=== PATIENT | male | born 1975 | race Hispanic/Latino ===

== ENCOUNTER 2017-10-17 09:42 | Emergency (ER) | payer BC ==
--- NOTE | 2017-10-17 10:10 | ED.PDOC ---
History of Present Illness - General Chief Complaint: Respiratory Problem Stated Complaint: cough, feeling hot Time Seen by Provider: 10/17/17 10:08 Source: patient Exam Limitations: no limitations - History of Present Illness Timing/Duration: other - Three days Cough Quality/Degree: moderate, dry cough Possible Cause: illness exposure Improving Factors: rest Worsening Factors: movement Associated Symptoms: chest pain/soreness, cough, fever/chills Allergies/Adverse Reactions: Allergies NO KNOWN ALLERGY Allergy (Verified 10/17/17 10:01) Home Medications: Ambulatory Orders Benzonatate Perles [Tessalon Perles] 100 mg PO TID PRN #20 cap 10/17/17 Review of Systems - Review of Systems Constitutional: States: fever, malaise EENTM: States: nose congestion Respiratory: States: cough. Denies: short of breath Cardiology: States: chest pain. Denies: edema Gastrointestinal/Abdominal: Denies: abdominal pain, nausea Genitourinary: States: no symptoms reported Musculoskeletal: States: muscle pain Skin: Denies: rash Neurological: States: weakness. Denies: headache, paresthesia Past Medical History (General) - Patient Medical History Hx Seizures: No Hx Stroke: No Hx Asthma: No Hx Cardiac Disorders: No Hx Hypertension: Yes Hx Diabetes: No Hx Renal Disease: No Surgical History: no surgical history Family Medical History - Family History Mother Family History: Unknown Physical Exam - Physical Exam General Appearance: Alert, Comfortable Eye Exam: bilateral normal ENT Exam: normal ENT inspection Neck: non-tender, full range of motion Respiratory: normal breath sounds, no respiratory distress Cardiovascular/Chest: normal peripheral pulses, regular rate, rhythm, no edema Gastrointestinal/Abdominal: normal bowel sounds, non tender Extremity: normal range of motion, normal inspection Neurologic: alert, normal mood/affect, oriented x 3 Skin Exam: normal color Lymphatic: no adenopathy Departure - Departure Clinical Impression: Influenza Disposition: Discharge to Home or Self Care Condition: Good Departure Forms: ED Discharge - Pt. Copy, Patient Portal Self Enrollment Prescriptions: Benzonatate Perles [Tessalon Perles] 100 mg PO TID PRN #20 cap PRN Reason: Cough Home Medications: Ambulatory Orders Benzonatate Perles [Tessalon Perles] 100 mg PO TID PRN #20 cap 10/17/17
[2017-10-17 10:13] VITALS: TEMP 98.6
[2017-10-17 10:23] VITALS: BP 163/107; O2SAT 96
== END 2017-10-17 10:23 | disposition home or self-care (01) ==
LOC: ER 09:42
DX: J11.1 Influenza due to unidentified influenza virus with other respiratory manifestations (principal)

== ENCOUNTER → 2018-08-01 | Outpatient (CLI) | payer BC | LOC: LAB.O 08:08 | PROVIDERS: ATTEND Nurse Practitioner Family | DX: Z13.220 Encounter for screening for lipoid disorders (principal); I10 Essential (primary) hypertension ==

== ENCOUNTER → 2019-12-22 | Outpatient (CLI) | payer OTHER | LOC: YCFC.O 07:27 | PROVIDERS: ATTEND Family Medicine | DX: E11.65 Type 2 diabetes mellitus with hyperglycemia (principal); E78.5 Hyperlipidemia, unspecified ==

== ENCOUNTER 2020-02-24 22:22 | Emergency (ER) | payer BC, OTHER ==
[2020-02-24 22:31] VITALS: TEMP 98.5
[2020-02-24] MEDS ORDERED: ASPIRIN TABLET 325 MG TAB PO ONE (22:31)
[2020-02-24] MEDS ORDERED: SUCRALFATE 1 GM/10 ML 1 GM UD PO ONE (22:32)
--- NOTE | 2020-02-24 23:09 | ED.PDOC ---
History of Present Illness - General Chief Complaint: Chest Pain/DE Stated Complaint: chest pain Time Seen by Provider: 02/24/20 22:25 Source: patient Exam Limitations: language barrier - History of Present Illness Initial Comments: The patient is a 44-year-old male presented emergency room secondary to intermittent chest pain starting around 3 AM this morning going to about 3 PM this evening. The patient had ran out of his blood pressure medications a few days prior. He has had no chest pain since 3 PM. He has however been drinking fairly steadily. He is obviously inebriated currently. No chest pain currently. No nausea vomiting or diarrhea currently. He did have some diarrhea earlier in the day. No fever. No shortness of breath. No rash. No altered mental status. He did have a mild headache earlier. No nuchal rigidity or meningeal signs. Chest pain was intermittent and stabbing in nature. Just to the left of the parasternal border. For a while that was worse with taking a deep breath. Timing/Duration: unsure Severity: moderate Improving Factors: immobilization Worsening Factors: movement Associated Symptoms: chest pain Allergies/Adverse Reactions: Allergies NO KNOWN ALLERGY Allergy (Verified 02/24/20 22:37) Home Medications: Ambulatory Orders Benzonatate Perles [Tessalon Perles] 100 mg PO TID PRN #20 cap 10/17/17 Famotidine [Pepcid Tab] 20 mg PO BID #60 tab 02/24/20 Sucralfate Tab [Carafate Tab] 1 gm PO QID #120 tab 02/24/20 Review of Systems - Review of Systems Constitutional: States: no symptoms reported EENTM: States: no symptoms reported Respiratory: States: no symptoms reported Cardiology: States: chest pain Gastrointestinal/Abdominal: States: no symptoms reported, diarrhea Genitourinary: States: no symptoms reported Musculoskeletal: States: no symptoms reported Skin: States: no symptoms reported Neurological: States: no symptoms reported Endocrine: States: no symptoms reported All other Systems: No Change from Baseline Past Medical History (General) - Patient Medical History Hx Seizures: No Hx Stroke: No Hx Dementia: No Hx Asthma: No Hx of COPD: No Hx Cardiac Disorders: No Hx Congestive Heart Failure: No Hx Hypertension: Yes Hx Thyroid Disease: No Hx Diabetes: Yes Hx Gastroesophageal Reflux: No Hx Renal Disease: No Hx Cancer: No Hx of HIV: No Hx Hepatitis C: No Hx MRSA: No Surgical History: no surgical history - Social History Hx Alcohol Use: Yes - daily drinks beer Family Medical History - Family History Mother Family History: Unknown Physical Exam - Physical Exam General Appearance: Alert, Comfortable, No apparent distress Eye Exam: bilateral normal Ears, Nose, Throat: hearing grossly normal, normal pharynx Neck: full range of motion, supple Respiratory: lungs clear, normal breath sounds, no respiratory distress, no accessory muscle use Cardiovascular/Chest: normal peripheral pulses, regular rate, rhythm, no edema Peripheral Pulses: radial,right: 2+, radial,left: 2+ Gastrointestinal/Abdominal: non tender, soft Rectal Exam: deferred Back Exam: no CVA tenderness, no vertebral tenderness Extremity: non-tender, normal inspection, no pedal edema, normal capillary refill Neurologic: communications supervisor II-XII nml as tested, alert, normal mood/affect, oriented x 3 Skin Exam: normal color Comments: Vital Signs - 24 hr 02/24/20 22:25 Temperature 98.5 F Pulse Rate [ 101 H left] Respiratory 18 Rate Blood Pressure 184/112 [Left Arm] O2 Sat by Pulse 98 Oximetry Repeat blood pressures have dropped into the 150s over 90s. Progress - Progress Progress: 02/24/20 23:41 The patient is a 44-year-old male presented emergency room secondary to chest pain that resolved around 8 hours prior to arrival. EKG is reassuring and cardiac enzymes are negative. The patient does have acute alcohol intoxication currently. This is also likely the source of his chest discomfort, alcohol induced gastritis and esophagitis. The patient will be written for Carafate for the next month as well as Pepcid for the next month. He needs to try and reduce his alcohol intake. Maalox liquid can be used additionally as needed. I would recommend that he set up an exercise tolerance test with his primary care doctor for cardiac rule stratification. ER warnings are given. Keep well-hydrated. bravo coronado [id number] - Results/Orders Results/Orders: Chest x-ray is essentially clear. EKG shows normal sinus rhythm at 99 bpm. Normal axis. Normal R wave progression. Criteria is present for LVH. This does include mild J-point elevation in anterior leads. No ST segment or T wave changes otherwise indicative of acute ischemia. Borderline prolonged QT interval. 02/24/20 22:52 SARS-COV2 RT-PCR HIGH RISK Stat Laboratory Results - last 24 hr 02/24/20 02/24/20 02/24/20 22:50 22:50 22:50 WBC 6.3 RBC 4.98 Hgb 16.4 Hct 45.6 MCV 91.6 MCH 32.9 H MCHC 35.9 RDW 13.8 Plt Count 158 MPV 9.1 Absolute Neuts (auto) 4.70 Absolute Lymphs (auto) 1.10 Absolute Monos (auto) 0.40 Absolute Eos (auto) 0.00 Absolute Basos (auto) 0.00 Neutrophils % 74.5 Lymphocytes % 18.0 L Monocytes % 6.7 Eosinophils % 0.1 L Basophils % 0.7 PT 12.0 H INR 1.21 H PTT (SP) 23.3 Sodium 138 Potassium 3.3 L Chloride 104 Carbon Dioxide 25 Anion Gap 12.3 BUN 6 L Creatinine 0.62 BUN/Creatinine Ratio 9.7 L Random Glucose 204 H Serum Osmolality 279.2 Calcium 9.0 Magnesium 2.2 Total Bilirubin 0.4 AST 52 H ALT 59 Alkaline Phosphatase 51 Creatine Kinase 290 H* CK-MB (CK-2) 2.4 CK-MB (CK-2) % Not Reportable Troponin I < 0.02 B-Natriuretic Peptide 33.4 Serum Total Protein 8.9 H Albumin 4.3 Globulin 4.6 H Albumin/Globulin Ratio 0.9 L Ethyl Alcohol 02/24/20 22:50 WBC RBC Hgb Hct MCV MCH MCHC RDW Plt Count MPV Absolute Neuts (auto) Absolute Lymphs (auto) Absolute Monos (auto) Absolute Eos (auto) Absolute Basos (auto) Neutrophils % Lymphocytes % Monocytes % Eosinophils % Basophils % PT INR PTT (SP) Sodium Potassium Chloride Carbon Dioxide Anion Gap BUN Creatinine BUN/Creatinine Ratio Random Glucose Serum Osmolality Calcium Magnesium Total Bilirubin AST ALT Alkaline Phosphatase Creatine Kinase CK-MB (CK-2) CK-MB (CK-2) % Troponin I B-Natriuretic Peptide Serum Total Protein Albumin Globulin Albumin/Globulin Ratio Ethyl Alcohol 220.20 H* Departure - Departure Clinical Impression: Uncontrolled hypertension, Atypical chest pain Alcohol intoxication Qualifiers: Complication of substance-induced condition: uncomplicated Qualified Code(s): F10.920 - Alcohol use, unspecified with intoxication, uncomplicated Alcoholic gastritis Qualifiers: Chronicity: acute Gastritis bleeding: without bleeding Qualified Code(s): K29.20 - Alcoholic gastritis without bleeding Disposition: Discharge to Home or Self Care Condition: Fair Departure Forms: ED Discharge - Pt. Copy, Patient Portal Self Enrollment Diet: bland diet Activity: increase activity as tolerated Referrals: Matthias Urbano MD [Primary Care Provider] - 1-2 Weeks Prescriptions: Famotidine [Pepcid Tab] 20 mg PO BID #60 tab Sucralfate Tab [Carafate Tab] 1 gm PO QID #120 tab Home Medications: Ambulatory Orders Benzonatate Perles [Tessalon Perles] 100 mg PO TID PRN #20 cap 10/17/17 Famotidine [Pepcid Tab] 20 mg PO BID #60 tab 02/24/20 Sucralfate Tab [Carafate Tab] 1 gm PO QID #120 tab 02/24/20 Additional Instructions: The patient is a 44-year-old male presented emergency room secondary to chest pain that resolved around 8 hours prior to arrival. EKG is reassuring and cardiac enzymes are negative. The patient does have acute alcohol intoxication currently. This is also likely the source of his chest discomfort, alcohol induced gastritis and esophagitis. The patient will be written for Carafate for the next month as well as Pepcid for the next month. He needs to try and reduce his alcohol intake. Maalox liquid can be used additionally as needed. I would recommend that he set up an exercise tolerance test with his primary care doctor for cardiac rule stratification. ER warnings are given. Keep well-hydrated.
--- NOTE | 2020-02-24 23:22 | RAD ---
EXAM DESCRIPTION: Chest,1 View CLINICAL HISTORY:44 years Male, chest pain Comparison: Chest radiograph dated July 04, 2016 FINDINGS: No focal lung consolidation. No pleural effusion. No pneumothorax. Mild elevation of left hemidiaphragm with associated atelectasis. Cardiomediastinal silhouette is within normal limits. No acute osseous abnormality. IMPRESSION: No acute cardiopulmonary disease. Electronically signed by: Trace Patino DO 02/24/2020 11:21 PM CDT
[2020-02-24 23:40] VITALS: BP 168/99; O2SAT 97
== END 2020-02-24 23:52 | disposition home or self-care (01) ==
LOC: ER 22:22
DX: I10 Essential (primary) hypertension (principal); R07.89 Other chest pain; K29.20 Alcoholic gastritis without bleeding; F10.920 Alcohol use, unspecified with intoxication, uncomplicated